=== PATIENT | male | born 1950 | race Caucasian/White ===

== ENCOUNTER 2018-07-27 11:42 | Day surgery (SDC) | payer MEDICARE, OTHER ==
[~2018-07-27] VITALS: Ht 170.2 cm; Wt 89.6 kg
[~2018-07-27 11:42] MED LIST: ATOR10 PO; FISH1000 PO; MULTIVITAMIN PO
== END 2018-07-27 13:25 | disposition home or self-care (01) ==
LOC: ORSCSDS 11:42
PROVIDERS: Internal Medicine Gastroenterology
PROC: 0DBM8ZX Excision of Descending Colon, Via Natural or Artificial Opening Endoscopic, Diagnostic (ICD-10-PCS; principal; 2018-07-27 13:00)
PROC: 0DBH8ZX Excision of Cecum, Via Natural or Artificial Opening Endoscopic, Diagnostic (ICD-10-PCS; principal; 2018-07-27 13:00)
DX: Z12.11 Encounter for screening for malignant neoplasm of colon (principal); D12.0 Benign neoplasm of cecum; D12.4 Benign neoplasm of descending colon; K57.30 Diverticulosis of large intestine without perforation or abscess without bleeding; Z86.010 Personal history of colon polyps; Z79.899 Other long term (current) drug therapy
CPT/HCPCS: J2060; J7120

== ENCOUNTER 2021-10-09 08:40 | Day surgery (SDC) | payer MEDICARE, OTHER ==
[~2021-10-09] VITALS: Ht 170.2 cm; Wt 94.0 kg
[~2021-10-09 08:40] MED LIST changes: +NAPR500 PO; +TAMS.4ER PO
--- NOTE | 2021-10-09 13:31 | NUR ---
PT ARRIVED TO THE ROOM FROM PACU AT APPROXIMATELY 1320. PT ALERT AND ORIENTED. PT DENIES PAIN AND REPORTS NUMBNESS TO BLE R/T SPINAL ANESTHESIA. PT IS UNABLE TO MOVE HIS FEET AT THIS TIME, WILL CONTINUE TO MONITOR. PT TOLERATING CLEAR LIQUIDS. VSS. WILL MONITOR UNTIL REPORT TO NOC RN.
--- NOTE | 2021-10-09 16:41 | NUR ---
SHIFT SUMMARY PT IS POD#0 FROM R TKA WITH DR. GONZALEZ. PT DENIES PAIN AT THIS TIME. HE IS ABLE TO TOLERATE PO AND VSS. PT WORKED WITH PHYSICAL THERAPY AND IS SITTING UP TO THE CHAIR. VSS. WILL MONITOR UNTIL REPORT TO ANTOINETTE HOBBS.
[2021-10-10 03:57] LABS: BASOPHILS ABSOLUTE AUTO 0.02 K/mm3 (0.00-0.23); BASOPHILS PERCENT AUTO 0 % (0-2); EOSINOPHILS PERCENT AUTO 0 % (0-6); Hematocrit 35.9 % (37.0-53.0); Hemoglobin 12.2 g/dL (13.5-17.5); IMMATURE GRAN ABSOLUTE AUTO 0.08 K/mm3 (0.00-0.10); IMMATURE GRAN PERCENT AUTO 0 % (0-1); LYMPHOCYTES ABSOLUTE AUTO 0.58 K/mm3 (0.84-5.20); LYMPHOCYTES PERCENT AUTO 3 % (21-46); MONOCYTES ABSOLUTE AUTO 0.91 K/mm3 (0.16-1.47); MONOCYTES PERCENT AUTO 5 % (4-13); Mean Corpuscular HGB 29.7 pg (26.0-34.0); Mean Corpuscular Volume 87 fL (80-100); Mean Platelet Volume 11.6 fL (9.1-12.4); NEUTROPHILS ABSOLUTE AUTO 16.53 K/mm3 (1.96-9.15); NEUTROPHILS PERCENT AUTO 91 % (41-73); Platelet Count 206 K/mm3 (150-400); RDW Coefficient Variation 11.9 % (11.7-14.2); RDW Standard Deviation 38.4 fL (35.1-46.3); Red Blood Cell Count 4.11 M/mm3 (4.30-5.90); White Blood Cell Count 18.12 K/mm3 (4.00-11.30)
[2021-10-10 04:11] LABS: Anion Gap 7 mmol/L (6-16); Blood Urea Nitrogen 16 mg/dL (8-24); Bun/Creatinine Ratio 21.9 (12.0-20.0); CO2, Blood 26 mmol/L (21-32); Calcium, Blood 8.8 mg/dL (8.5-10.1); Chloride, Blood 106 mmol/L (98-108); Creatinine, Blood 0.73 mg/dL (0.60-1.20); Glomerular Filtration Rate >60 (60-); Glucose, Blood 147 mg/dL (70-99); Potassium, Blood 4.5 mmol/L (3.5-5.5); Sodium, Blood 139 mmol/L (136-145)
--- NOTE | 2021-10-10 05:45 | NUR ---
ALERT AND ORIENTED X'S 4. AMBULATED WITH STAND BY ASISST TO BATHROOM AND IN DARLING. DENIES PAIN OR DISCOMOFRT. DRESSING CLEAN DRY AND INTACT TO RIGHT KNEE, CRYCUFF IN PLACE. SAFETY MAINTAINED, CALL JAMESON IN REACH.
[2021-10-10] MEDS ORDERED: Aspir 8181 MG PO (07:56)
[2021-10-10] MEDS ORDERED: Percocet 5-3251 EACH PO (07:56)
--- NOTE | 2021-10-10 10:18 | NUR ---
DISCHARGE NOTE: PATIENT AND WERE EDUCATED ON DISCHARGE INSTRUCTIONS. BOTH OF THEM VERBALIZED UNDERSTANDING OF INSTRUCTIONS. 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 PATIENT IS ALERT AND ORIENTED X4. VS ARE WNL AND ON RA. PAIN IS MANAGED WITH PO PAIN MEDS. RIGHT KNEE HAS AQUACEL THAT ARE C/D/I. DENIES NUMBNESS AND TINGLING. HE IS A SBA WITH FWW AND GAIT BELT. PATIENT IS DRESSED AND HAS ITEMS GATHERED IN THE ROOM. HIS IS WALKING HIM DOWN TO THE CAR TO TAKE HIM HOME. IV WAS TAKEN OUT AND WAS WNL.
== END 2021-10-10 09:58 | disposition home or self-care (01) ==
LOC: ORSCMMR 08:40 → SURS 13:10 → ORSCMMR 10-10 09:58 → ORD 10-23 10:00 → ORSCMMR 10-23 10:00
PROVIDERS: Orthopaedic Surgery
PROC: 8E0Y0CZ Robotic Assisted Procedure of Lower Extremity, Open Approach (ICD-10-PCS; principal; 2021-10-09 10:00)
PROC: 0SRC0JA Replacement of Right Knee Joint with Synthetic Substitute, Uncemented, Open Approach (ICD-10-PCS; principal; 2021-10-09 10:00)
DX: M17.11 Unilateral primary osteoarthritis, right knee (principal); E78.5 Hyperlipidemia, unspecified; E66.9 Obesity, unspecified; Z68.32 Body mass index [BMI] 32.0-32.9, adult; Z79.899 Other long term (current) drug therapy
CPT/HCPCS: 27447; S2900; 36415; 73560-RT; 80048; 85025; 97110; 97110-CQ; 97116; 97116-CQ; 97162; 97530-CQ; A9270; C1776; J0171; J0690; J0735; J1100; J1885; J2250; J2405; J2704; J2795; J3010; J7120

== ENCOUNTER 2023-08-18 12:17 | Day surgery (SDC) | payer MEDICARE, OTHER ==
[~2023-08-18] VITALS: Ht 170.2 cm; Wt 91.8 kg
[~2023-08-18 12:17] MED LIST changes: +Aspir 8181 MG PO; +Percocet 5-3251 EACH PO
[2023-08-18] MEDS ORDERED: HYDCHL25 (12:44)
[2023-08-18 14:54] VITALS: BP 109/56
--- NOTE | 2023-08-18 14:56 | NUR ---
08/18/23 1456 Trinidad Das LATE ENTRY IV DC'D AT 1420 WNL
== END 2023-08-18 14:40 | disposition home or self-care (01) ==
LOC: ORSCSDS 12:17
PROVIDERS: Internal Medicine Gastroenterology
PROC: 0DBK8ZX Excision of Ascending Colon, Via Natural or Artificial Opening Endoscopic, Diagnostic (ICD-10-PCS; principal; 2023-08-18 14:15)
PROC: 0DBM8ZX Excision of Descending Colon, Via Natural or Artificial Opening Endoscopic, Diagnostic (ICD-10-PCS; principal; 2023-08-18 14:15)
DX: Z12.11 Encounter for screening for malignant neoplasm of colon (principal); Z86.010 Personal history of colon polyps; D12.2 Benign neoplasm of ascending colon; D12.4 Benign neoplasm of descending colon; K57.30 Diverticulosis of large intestine without perforation or abscess without bleeding; Z79.899 Other long term (current) drug therapy
CPT/HCPCS: 88305; J2704; J7120